=== PATIENT | male | born 1995 | race Hispanic/Latino ===

== ENCOUNTER 2019-06-11 15:14 | Emergency (ER) | payer BC, OTHER ==
[2019-06-11] MEDS ORDERED: Ketorolac Tromethamine 30 MG/ML VIAL ONE (15:39)
[2019-06-11] MEDS ORDERED: Morphine 4 MG/ML VIAL ONE (15:39)
[2019-06-11] MEDS ORDERED: Ondansetron PF 4 MG/2 ML Vial ONE (15:46)
--- NOTE | 2019-06-11 16:10 | RAD ---
EXAM: XR Lumbar Spine 2 Or 3 View PROVIDED CLINICAL HISTORY: Sudden onset of low back pain. Patient states midline low back pain at level L3 vertebral body. COMPARISON: None FINDINGS: There are 5 nonrib-bearing lumbar-type vertebral bodies. The vertebral body heights and intervertebra l disc spaces are within normal limits. No fracture or subluxation is seen involving the lumbar spine. IMPRESSION: No fracture or subluxation involving the lumbar spine.
[2019-06-11] MEDS ORDERED: Diazepam 10 MG/2 ML SYRINGE ONE (17:24)
== END 2019-06-11 17:46 | disposition home or self-care (01) ==
LOC: ERS 15:14
DX: M62.830 Muscle spasm of back (principal); X50.0XXA Overexertion from strenuous movement or load, initial encounter; Y93.43 Activity, gymnastics
CPT/HCPCS: 72100; 96374; 96375; J1885; J2270; J2405; J3360

== ENCOUNTER 2020-06-10 13:53 | Outpatient (CLI) | payer OTHER ==
[2020-06-10] MEDS ORDERED: Magnevist 469MG/ML 20 ML VIAL ONE (14:49)
--- NOTE | 2020-06-10 15:41 | MRI ---
EXAM: MRI lumbar spine without and with contrast HISTORY: Low back pain with left-sided sciatica for 4 years. COMPARISON: None TECHNIQUE: Multiple planar multisequence MR images were obtained of the lumbar spine without and with contrast. FINDINGS: The vertebral bodies and intervertebral discs demonstrate normal height and alignment without fractur e or subluxation. The prevertebral and paraspinal soft tissues are unremarkable. No marrow signal abnormality is present. The conus medullaris terminates normally at T12. No abnormal enhancement is seen on this examination. T12/L1: No significant posterior bulge or protrusion. No posterior facet arthrosis. No central oracio l stenosis. No neural foraminal stenosis L1/2: No significant posterior bulge or protrusion. No posterior facet arthrosis. No central canal stenosis. No neural foraminal stenosis L2/3: No significant posterior bulge or protrusion. No posterior facet arthrosis. No central canal stenosis. No neural foraminal stenosis L3/4: No significant posterior bulge or protrusion. No posterior facet arthrosis. No central canal stenosis. No neural foraminal stenosis L4/5: No significant posterior bulge or protrusion. No posterior facet arthrosis. No central canal stenosis. No neural foraminal stenosis L5/S1: There is a small left paracentral disc bulge. No posterior facet arthrosis. No central canal stenosis. Mild left neural foraminal stenosis IMPRESSION: Minimal disc bulge at L5/S1 as above
== END 2020-06-10 13:54 | disposition home or self-care (01) ==
LOC: BICMRI 13:53
PROVIDERS: ATTEND Nurse Practitioner Family
DX: M54.42 Lumbago with sciatica, left side (principal); M51.87 Other intervertebral disc disorders, lumbosacral region
CPT/HCPCS: 72158; A9579

== ENCOUNTER 2022-12-07 09:43 | Day surgery (SDC) | payer BC ==
[2022-12-06 08:28] VITALS: BMI 24.3
[2022-12-07] MEDS ORDERED: Oxymetazoline HCl 0.05% (30 ML BOT) ONE ×2 (10:40→12:06)
[2022-12-07] MEDS ORDERED: Lidocaine 1% (PF) 30 ML VIAL ONE (12:06)
[2022-12-07] MEDS ORDERED: EPINEPHrine 1 MG/ML AMP ONE (12:06)
[2022-12-07] MEDS ORDERED: SUGAMMADEX SODIUM 200 MG/2 ML VIAL ONE (12:12)
[2022-12-07] MEDS ORDERED: fentaNYL PF 100 MCG/2 ML SYRINGE ONE (12:12)
[2022-12-07] MEDS ORDERED: methylPREDNISolone Acetate 40 mg/ml Vial ONE (12:42)
[2022-12-07] MEDS ORDERED: PROPOFOL 200 MG/20 ML VIAL ONE (12:50)
[2022-12-07] MEDS ORDERED: Ondansetron PF 4 MG/2 ML Vial ONE (12:50)
[2022-12-07] MEDS ORDERED: Rocuronium Bromide 10 MG/ML (10ML VIAL) ONE (12:50)
[2022-12-07] MEDS ORDERED: Dexamethasone 20 MG/5 ML VIAL ONE (12:50)
[2022-12-07] MEDS ORDERED: Lidocaine 1% PF 5 ML VIAL ONE (12:50)
[2022-12-07] MEDS ORDERED: fentaNYL 50 mcg/mL 1 mL Vial ONE (14:09)
== END 2022-12-07 15:29 | disposition home or self-care (01) ==
LOC: SDC 09:43
PROVIDERS: ATTEND Otolaryngology Plastic Surgery within the Head & Neck
DX: J34.2 Deviated nasal septum (principal); J34.3 Hypertrophy of nasal turbinates; J32.0 Chronic maxillary sinusitis; J32.1 Chronic frontal sinusitis; J32.2 Chronic ethmoidal sinusitis; J32.3 Chronic sphenoidal sinusitis; J34.89 Other specified disorders of nose and nasal sinuses; Z90.89 Acquired absence of other organs; R51.9 Headache, unspecified
CPT/HCPCS: J0171; J1030; J1100; J2001; J2405; J2704; J3010

== ENCOUNTER 2025-04-09 13:32 | Inpatient (IN) | payer BC, OTHER ==
[2025-04-09 14:32] LABS: #Basophils 0.07 10x3/uL (0.0-0.2); #Eosinophils 0.46 10x3/uL (0.0-0.7); #Monocytes 0.79 10x3/uL (0.11-0.59); #Neutrophils 6.10 10x3/uL (1.40-6.50); %Basophils 0.7 % (0.0-1.0); %Eosinophils 4.8 % (0.0-10.0); %Lymphocytes 22.7 % (21.0-51.0); %Monocytes 8.2 % (0.0-10.0); %Neutrophils 63.3 % (42.0-75.0); Hematocrit 43.5 % (42.0-52.0); Hemoglobin 14.2 g/dL (14.0-18.0); Mean Corpuscular Hemoglobin 30.2 pg (27.0-31.0); Mean Corpuscular Volume 92.6 fL (78.0-98.0); Platelet Count 310 10x3/uL (130-400); Red Blood Cell (RBC) Count 4.70 mill/uL (4.70-6.10); White Blood Cell (WBC) Count 9.64 10x3/uL (4.8-10.8)
[2025-04-09 15:05] LABS: ALT (SGPT) 12 U/L (Less than 45); AST (SGOT) 16 U/L (11-34); Albumin 4.1 g/dL (3.1-4.5); Alkaline Phosphatase 74 U/L (40-110); Anion Gap 16 mmol/L (10-20); BUN (Urea Nitrogen) 15 mg/dL (8.9-20.6); Bilirubin, Total 0.4 mg/dL (0.3-1.2); Calc. Creatinine Clearance 0 mL/min (70-130); Calcium 9.0 mg/dL (7.8-10.44); Carbon Dioxide 25 mmol/L (22-29); Chloride 104 mmol/L (98-107); Globulin 3.1 g/dL (2.4-3.5); Glucose 102 mg/dL (70-105); Magnesium 1.9 mg/dL (1.6-2.6); Potassium 4.2 mmol/L (3.5-5.1); Sodium 141 mmol/L (136-145)
[2025-04-09] MEDS ORDERED: Lidocaine 1% w/Epinephrine 1:100K 20 ML VIAL ONE (15:26)
[2025-04-09] MEDS ORDERED: Pharmacy to Dose: VANC IVPB PRN (22:34)
[2025-04-10] MEDS: VANCOMYCIN 2 GRAM/400 ML BAG 2 GM in Premix 1 BAG IVPB SCH (01:14)
[2025-04-10] MEDS: diphenhydrAMINE 50 MG/ML VIAL IVP SCH (03:04)
[2025-04-10] MEDS ORDERED: HYDROcodone/Acetaminophen 10/325 mg Tablet PO PRN (08:17)
[2025-04-10] MEDS ORDERED: Acetaminophen 325 MG TAB PO PRN (08:42)
[2025-04-10] MEDS ORDERED: Ondansetron PF 4 MG/2 ML Vial IVP PRN ×2 (08:42→14:34)
[2025-04-10] MEDS ORDERED: Enoxaparin 40 MG (0.4 mL) SYRINGE SC SCH (09:00)
[2025-04-10] MEDS ORDERED: Vancomycin 1.5 GM / NS 500 ML VIAL-2-BAG IVPB SCH (10:00)
[2025-04-10] MEDS ORDERED: Bupivacaine 0.25% HCL 30 ML VIAL ONE (12:41)
[2025-04-10] MEDS ORDERED: fentaNYL PF 100 MCG/2 ML SYRINGE ONE (12:43)
[2025-04-10] MEDS ORDERED: Lidocaine 1% PF 5 ML VIAL ONE (12:44)
[2025-04-10] MEDS ORDERED: PROPOFOL 200 MG/20 ML VIAL ONE (13:00)
[2025-04-10] MEDS ORDERED: Rocuronium Bromide 10 MG/ML (10ML VIAL) ONE (13:00)
[2025-04-10] MEDS ORDERED: SUGAMMADEX SODIUM 200 MG/2 ML VIAL ONE (13:50)
[2025-04-10] MEDS ORDERED: Ondansetron PF 4 MG/2 ML Vial ONE (14:04)
[2025-04-10] MEDS ORDERED: HYDROcodone/Acetaminophen 5/325 mg Tablet PO PRN (14:34)
[2025-04-10] MEDS: Cyclobenzaprine 10 MG TAB PO SCH (15:00)
[2025-04-10] MEDS: Acetaminophen 325 MG TAB PO SCH (15:00)
[2025-04-10] MEDS: Ketorolac Tromethamine 30 MG (1 mL) VIAL IVP SCH (18:23)
[2025-04-10 18:53] VITALS: BP 110/57
[2025-04-10] MEDS: Linezolid 600 MG in Premix 1 BAG IVPB SCH (20:42)
[2025-04-10] MEDS: HYDROcodone/Acetaminophen 5/325 mg Tablet PO PRN (21:39)
[2025-04-11] MEDS: Mupirocin 1 GM TUBE NASAL DECOLONIZATION NASAL SCH (09:19)
[2025-04-11 10:20] LABS: #Basophils 0.04 10x3/uL (0.0-0.2); #Eosinophils 0.13 10x3/uL (0.0-0.7); #Monocytes 1.38 10x3/uL (0.11-0.59); #Neutrophils 12.38 10x3/uL (1.40-6.50); %Basophils 0.3 % (0.0-1.0); %Eosinophils 0.8 % (0.0-10.0); %Lymphocytes 11.6 % (21.0-51.0); %Monocytes 8.7 % (0.0-10.0); %Neutrophils 78.2 % (42.0-75.0); Hematocrit 39.9 % (42.0-52.0); Hemoglobin 13.2 g/dL (14.0-18.0); Mean Corpuscular Hemoglobin 30.6 pg (27.0-31.0); Mean Corpuscular Volume 92.4 fL (78.0-98.0); Platelet Count 259 10x3/uL (130-400); Red Blood Cell (RBC) Count 4.32 mill/uL (4.70-6.10); White Blood Cell (WBC) Count 15.82 10x3/uL (4.8-10.8)
[2025-04-11 10:43] LABS: Anion Gap 12 mmol/L (10-20); BUN (Urea Nitrogen) 18 mg/dL (8.9-20.6); Calc. Creatinine Clearance 137 mL/min (70-130); Calcium 9.2 mg/dL (7.8-10.44); Carbon Dioxide 28 mmol/L (22-29); Chloride 103 mmol/L (98-107); Glucose 115 mg/dL (70-105); Potassium 4.5 mmol/L (3.5-5.1); Sodium 138 mmol/L (136-145)
[2025-04-11] MEDS: Transdermal Patch Removal TOP SCH (21:40)
[2025-04-12 05:12] VITALS: BMI 26.5
[2025-04-12 11:10] LABS: #Basophils 0.07 10x3/uL (0.0-0.2); #Eosinophils 0.53 10x3/uL (0.0-0.7); #Monocytes 0.88 10x3/uL (0.11-0.59); #Neutrophils 7.90 10x3/uL (1.40-6.50); %Basophils 0.7 % (0.0-1.0); %Eosinophils 5.1 % (0.0-10.0); %Lymphocytes 10.0 % (21.0-51.0); %Monocytes 8.4 % (0.0-10.0); %Neutrophils 75.4 % (42.0-75.0); Hematocrit 42.7 % (42.0-52.0); Hemoglobin 13.6 g/dL (14.0-18.0); Mean Corpuscular Hemoglobin 30.5 pg (27.0-31.0); Mean Corpuscular Volume 95.7 fL (78.0-98.0); Platelet Count 253 10x3/uL (130-400); Red Blood Cell (RBC) Count 4.46 mill/uL (4.70-6.10); White Blood Cell (WBC) Count 10.47 10x3/uL (4.8-10.8)
[2025-04-12 13:00] VITALS: TEMP 98.2
[2025-04-14 11:29] LABS: ANA Symphony (Qualitative) Negative (Negative); ANA Symphony (Quantitative) 0.4 Ratio (< 0.7 Negative); dsDNA IgG Antibody 10.0 IU/mL (<10 Negative)
[2025-04-14 12:38] LABS: EliA RAS New Method **** NEW METHOD ****; Rheumatoid Factor IgM Antibody 2.9 IU/mL (<3.5 Negative)
== END 2025-04-12 14:15 | disposition home or self-care (01) | DRG 166 ==
LOC: ERS 13:32 → ERHOLD 17:41 → OBS 23:52 → OBSVTOIN 04-10 08:14 → SURG A 04-10 10:11 → IMCU/EMU 04-10 17:48
PROVIDERS: ADMIT Internal Medicine; ATTEND Internal Medicine
PROC: 0BBN4ZX Excision of Right Pleura, Percutaneous Endoscopic Approach, Diagnostic (ICD-10-PCS; principal; 2025-04-10)
PROC: 3E0234Z Introduction of Serum, Toxoid and Vaccine into Muscle, Percutaneous Approach (ICD-10-PCS; 2025-04-10)
PROC: 0W993ZZ Drainage of Right Pleural Cavity, Percutaneous Approach (ICD-10-PCS; 2025-04-10)
PROC: 3E03329 Introduction of Other Anti-infective into Peripheral Vein, Percutaneous Approach (ICD-10-PCS; 2025-04-11)
DX: J90 Pleural effusion, not elsewhere classified (principal); J86.9 Pyothorax without fistula; F17.210 Nicotine dependence, cigarettes, uncomplicated; F10.90 Alcohol use, unspecified, uncomplicated; Z98.890 Other specified postprocedural states; Z23 Encounter for immunization
CPT/HCPCS: 32554; 36415; 71045; 74176; 80048; 80053; 83520; 83690; 83735; 83880; 84484; 85025; 86038; 86141; 86225; 87070; 87081; 87205; 88112; 88305; 88341; 88342; 93005; 93970; 96374; 96375; 96376; G0378; J0169; J0295; J0665; J1100; J1200; J1885; J2020; J2405; J2704; J3010; J3375

== ENCOUNTER 2025-04-25 09:45 | Emergency (ER) | payer BC, SELFPAY ==
[2025-04-25 10:10] LABS: #Basophils 0.08 10x3/uL (0.0-0.2); #Eosinophils 0.89 10x3/uL (0.0-0.7); #Monocytes 0.99 10x3/uL (0.11-0.59); #Neutrophils 7.08 10x3/uL (1.40-6.50); %Basophils 0.7 % (0.0-1.0); %Eosinophils 8.2 % (0.0-10.0); %Lymphocytes 16.8 % (21.0-51.0); %Monocytes 9.1 % (0.0-10.0); %Neutrophils 64.9 % (42.0-75.0); Hematocrit 42.7 % (42.0-52.0); Hemoglobin 14.3 g/dL (14.0-18.0); Mean Corpuscular Hemoglobin 29.7 pg (27.0-31.0); Mean Corpuscular Volume 88.8 fL (78.0-98.0); Platelet Count 243 10x3/uL (130-400); Red Blood Cell (RBC) Count 4.81 mill/uL (4.70-6.10); White Blood Cell (WBC) Count 10.90 10x3/uL (4.8-10.8)
[2025-04-25 10:29] LABS: ALT (SGPT) 15 U/L (Less than 45); AST (SGOT) 19 U/L (11-34); Albumin 3.7 g/dL (3.1-4.5); Alkaline Phosphatase 85 U/L (40-110); Anion Gap 17 mmol/L (10-20); BUN (Urea Nitrogen) 12 mg/dL (8.9-20.6); Bilirubin, Total 0.6 mg/dL (0.3-1.2); Calc. Creatinine Clearance 0 mL/min (70-130); Calcium 9.3 mg/dL (7.8-10.44); Carbon Dioxide 27 mmol/L (22-29); Chloride 102 mmol/L (98-107); Globulin 3.7 g/dL (2.4-3.5); Glucose 100 mg/dL (70-105); Potassium 4.4 mmol/L (3.5-5.1); Sodium 142 mmol/L (136-145)
[2025-04-25] MEDS ORDERED: Iopamidol-370 76% 500 ML MDV (1 ML CHARGE) ONE (14:19)
== END 2025-04-25 13:18 | disposition home or self-care (01) ==
LOC: ERS 09:45
DX: J90 Pleural effusion, not elsewhere classified (principal); Z55.6 Problems related to health literacy
CPT/HCPCS: 71045; 71275; 80053; 83880; 85025; 93005; Q9967

== ENCOUNTER 2025-04-28 14:26 | Outpatient (CLI) | payer BC, OTHER | END 2025-04-28 14:27 | disposition home or self-care (01) | LOC: RAD 14:26 | PROVIDERS: ATTEND Student in an Organized Health Care Education/Training Program | DX: J90 Pleural effusion, not elsewhere classified (principal) | CPT/HCPCS: 71046 ==